=== PATIENT | male | born 1985 | race Caucasian/White ===

== ENCOUNTER → 2021-10-30 11:05 | Outpatient (CLI) | payer OTHER, SELFPAY | PROVIDERS: Family Provider Podiatrist; PCP Podiatrist; Referring Provider Podiatrist; Visit Provider Podiatrist | DX: M54.31 Sciatica, right side (principal) | CPT/HCPCS: 95886; 95909 ==

== ENCOUNTER 2022-05-09 18:01 | Emergency (ER) | payer OTHER, SELFPAY ==
[2022-05-09] VITALS (13 sets, daily range): BP systolic 114–142; BP diastolic 77–95; PULSE 62–78; RESP 12–20; TEMP 36.2; O2SAT 96–100; BMI 24.7
--- NOTE | 2022-05-09 18:30 | DI.RAD.S_ITS ---
PROCEDURE: XR CHEST 1V INDICATIONS: chest pain TECHNIQUE: One view of the chest was acquired. COMPARISON: None. FINDINGS: Surgical changes and devices: None. Lungs and pleura: Lungs are clear. No pleural effusions or pneumothorax. Mediastinum: Mediastinal contours appear normal. Heart size is normal. Bones and chest wall: No suspicious bony lesions. Overlying soft tissues appear unremarkable. IMPRESSION: No acute cardiopulmonary pathology. Dictated by: Simón Gil M.D. on 05/09/2022 at 19:03 Approved by: Simón Gil M.D. on 05/09/2022 at 19:03
[2022-05-09 18:57] LABS: Add Manual Diff / Slide Review NO; Basophils Absolute Auto 100 /uL (0-100); Basophils Percent Auto 1.3 % (0-2); Eosinophils Absolute Auto 100 /uL (0-450); Eosinophils Percent Auto 2.8 % (2-4); Hematocrit 43.2 % (41-53); Hemoglobin 15.3 g/dL (13.5-17.5); Lymphocytes Absolute Auto 1500 /uL (1100-4500); Lymphocytes Percent Auto 29.9 % (25-40); Mean Corpuscular HGB Conc 35.5 % (30-36); Mean Corpuscular Hemoglobin 28.7 PG (26-34); Mean Corpuscular Volume 80.9 fL (80-100); Monocytes Absolute Auto 600 /uL (0-900); Monocytes Percent Auto 12.6 % (3-14); Neutrophils Absolute Auto 2700 /uL (1500-7000); Neutrophils Percent Auto 53.4 % (50-75); Platelet Count 210 X10^3/uL (150-400); Red Blood Cell Count 5.35 X10^6/uL (4.5-5.9); Red Cell Distribution Width 13.8 % (11.6-14.8); White Blood Cell Count 5.1 X10^3/uL (4.5-11.0)
[2022-05-09 19:10] LABS: Alanine Aminotransferase 44 IU/L (<50); Albumin 4.4 g/dL (3.5-5.0); Albumin Globulin Ratio 1.4 (1.0-2.8); Alkaline Phosphatase 92 U/L (38-126); Aspartate Aminotransferase 36 IU/L (17-59); BUN Creatinine Ratio 10.2 (6-22); Bilirubin Total 0.7 mg/dL (0.2-1.3); Blood Urea Nitrogen 12 mg/dL (9-20); Calcium 8.7 mg/dL (8.4-10.2); Carbon Dioxide 28 mmol/L (22-32); Chloride 103 mmol/L (98-107); Creatine Kinase 71 U/L (55-170); Estimated Glomerular Filt Rate > 60 mL/min (>60); Globulin 3.2 g/dL (1.7-4.1); Glucose 118 mg/dL (70-100); HEMOLYSIS < 15 (0-50); Lipase 48 U/L (23-300); Magnesium 2.1 mg/dL (1.6-2.3); Potassium 4.3 mmol/L (3.4-5.1); Sodium 136 mmol/L (137-145); Total Protein 7.6 g/dL (6.3-8.2)
[2022-05-09 19:21] LABS: Troponin I < 0.012 ng/mL (0.01-0.034)
--- NOTE | 2022-05-09 23:52 | ED_ITS ---
[facility] - General Adult General Chief complaint: Hypertension Stated complaint: High BP, several days Time Seen by Provider: 05/09/22 23:52 Source: patient Mode of arrival: Ambulatory History of Present Illness HPI narrative: 36-year-old gentleman presents complaining of a retic blood pressures, epistaxis and significant headache. His symptoms began abruptly on May 03. He noticed he was standing at the sink when he had nose bleed was followed by a sense of dizziness and then he developed a headache. That resolved. He had another ep isode on the initially lightheaded followed by a nose bleed with headache. The headache has persisted. Symptoms continued intermittently on on the he had the worst headache of his life. The headache continued and he went to [facility] for further workup. Workup was unremarkable including CT scan of the head. The CT scan was done approximately 8-12 hours after the onset of the headache. On May 08 he was seen by his primary care doctor and started on 10 mg of lisinopril. On the he noticed nose bleeds and with blood pressure elevated was concerned that he was developing chest pain/pressure and he came in to [facility] for further evaluation. He denies palpitations, abdominal pain, vomiting, nausea, constipation, diarrhea, dysuria. He has not been gaining weight or losing weight recently. He has had no vision changes. Related Data Allergies Allergy/AdvReac Type Severity Reaction Status Date / Time No Known Drug Allergies Allergy Verified 05/09/22 18:24 Review of Systems Review of Systems Narrative: Remainder of complete review of systems is otherwise unremarkable except for that included in the HPI. Patient History Social History Smoking Status: Never smoker Smoking Status: Never smoker alcohol intake frequency: holidays/special occasions only Substance Use Type: does not use Exam Initial Vital Signs Initial Vital Signs: Vital Signs Temperature 97.2 F L 05/09/22 18:24 Pulse Rate 75 05/09/22 18:24 Respiratory Rate 18 05/09/22 18:24 Blood Pressure 137/95 H 05/09/22 18:24 Pulse Oximetry 100 05/09/22 18:24 Oxygen Delivery Method 05/09/22 18:24 General: Healthy appearing, in no acute distress. Able to give a complete and coherent history. Well-nourished well-developed HEENT: Moist mucous membranes, normal sclera with reactive pupils, nasal mucosa is unremarkable with no obvious bleeding source or site Neck: No JVD, supple Respiratory: Lungs are clear to auscultation, no wheezing no rales no rhonchi. Full and symmetrical air movement Cardiac: Regular rate and rhythm no murmurs no bruits Abdomen: Soft, nontender, good bowel tones, no flank pain Skin: Warm and dry, no rashes Neurologic: Grossly neurologically intact with no obvious asymmetries or abnormalities Extremities: No trauma, well perfused Psych: Cooperative, appropriate insight and affect Course Orders Ordered: ED Orders 05/10/22 00:14 Metanephrines, Fr/tot plasma Stat 05/10/22 02:51 CSF culture Stat Cell Count w Diff CSF Stat Glucose CSF Stat HOLD TUBE CSF Stat Meningitis Panel (Film Array) Stat Total Protein CSF Stat Discontinued Medications Diphenhydramine HCl (Diphenhydramine 50 Mg/Ml Vial) 25 mg IV NOW ONE Stop: 05/10/22 00:11 Last Admin: 05/10/22 00:24 Dose: 25 mg Documented By: NICK Sodium Chloride (Normal Saline 0.9%) 1,000 mls @ 1,000 mls/hr IV BOLUS ONE Stop: 05/10/22 01:09 Last Infusion: 05/10/22 02:42 Dose: 0 mls/hr Documented By: Admin: 05/10/22 00:23 Dose: 1,000 mls/hr Documented By: NICK Metoclopramide HCl (Metoclopramide 10 Mg/2 Ml Inj) 10 mg IV NOW ONE Stop: 05/10/22 00:11 Last Admin: 05/10/22 00:24 Dose: 10 mg Documented By: NICK Vital Signs Vital signs: Vital Signs - 8 hr 05/09/22 20:19 05/09/22 20:19 05/09/22 20:30 Pulse Rate 68 Respiratory Rate 14 Blood Pressure 132/89 124/85 Pulse Oximetry 100 Oxygen Delivery Method 05/09/22 20:30 05/09/22 21:00 05/09/22 21:00 Pulse Rate 70 77 Respiratory Rate 17 20 Blood Pressure 132/77 Pulse Oximetry 99 98 Oxygen Delivery Method Room Air Room Air 05/09/22 21:30 05/09/22 21:30 05/09/22 21:36 Pulse Rate 68 70 Respiratory Rate 15 16 Blood Pressure 129/79 Pulse Oximetry 97 99 Oxygen Delivery Method 05/09/22 21:36 05/09/22 22:00 05/09/22 22:00 Pulse Rate 65 Respiratory Rate 15 Blood Pressure 142/85 H 119/79 Pulse Oximetry 96 Oxygen Delivery Method 05/09/22 22:30 05/09/22 22:30 05/09/22 23:00 Pulse Rate 69 Respiratory Rate 12 Blood Pressure 124/81 114/78 Pulse Oximetry 97 Oxygen Delivery Method 05/09/22 23:00 05/09/22 23:30 05/09/22 23:30 Pulse Rate 63 62 Respiratory Rate 14 15 Blood Pressure 130/81 Pulse Oximetry 96 97 Oxygen Delivery Method 05/10/22 00:00 05/10/22 00:00 05/10/22 00:01 Pulse Rate 65 68 Respiratory Rate 16 15 Blood Pressure 167/102 H Pulse Oximetry 99 99 Oxygen Delivery Method 05/10/22 00:01 Pulse Rate Respiratory Rate Blood Pressure 166/106 H Pulse Oximetry Oxygen Delivery Method Medical Decision Making Lab Data Result diagrams: 05/09/22 18:40 05/09/22 18:40 Labs: Lab Results 05/09/22 05/09/22 05/10/22 Range/Units 18:40 18:40 02:25 WBC 5.1 (4.5-11.0) X10^3/uL RBC 5.35 (4.5-5.9) X10^6/uL Hgb 15.3 (13.5-17.5) g/dL Hct 43.2 (41-53) % MCV 80.9 (80-100) fL MCH 28.7 (26-34) PG MCHC 35.5 (30-36) % RDW 13.8 (11.6-14.8) % Plt Count 210 (150-400) X10^3/uL Neut % (Auto) 53.4 (50-75) % Lymph % (Auto) 29.9 (25-40) % [place] % (Auto) 12.6 (3-14) % Eos % (Auto) 2.8 (2-4) % Baso % (Auto) 1.3 (0-2) % Neut # (Auto) 2700 (2837-4654) /uL Lymph # (Auto) 1500 (5332-4587) /uL [place] # (Auto) 600 (0-900) /uL Eos # (Auto) 100 (0-450) /uL Baso # (Auto) 100 (0-100) /uL Sodium 136 L (137-145) mmol/L Potassium 4.3 (3.4-5.1) mmol/L Chloride 103 (98-107) mmol/L Carbon Dioxide 28 (22-32) mmol/L BUN 12 (9-20) mg/dL Creatinine 1.18 (0.66-1.25) mg/dL Estimated GFR > 60 (>60) mL/min BUN/Creatinine Ratio 10.2 (6-22) Glucose 118 H (70-100) mg/dL Calcium 8.7 (8.4-10.2) mg/dL Magnesium 2.1 (1.6-2.3) mg/dL Total Bilirubin 0.7 (0.2-1.3) mg/dL AST 36 (17-59) IU/L ALT 44 (<50) IU/L Alkaline Phosphatase 92 (38-126) U/L Total Creatine Kinase 71 (55-170) U/L CK-MB (CK-2) TNP CK-MB (CK-2) Rel Index TNP Troponin I < 0.012 (0.01-0.034) ng/mL Total Protein 7.6 (6.3-8.2) g/dL Albumin 4.4 (3.5-5.0) g/dL Globulin 3.2 (1.7-4.1) g/dL Albumin/Globulin Ratio 1.4 (1.0-2.8) Lipase 48 (23-300) U/L CSF Tube Number 2 CSF Volume 1.0 ml CSF Appearance Clear (Clear) CSF Color Colorless (Colorless) CSF WBC 1 (0-5) MONO/uL CSF RBC 572 RBC /uL CSF Mononuclear WBCs Not Reportable CSF Polynuclear WBCs Not Reportable CSF Glucose 54 (40-70) mg/dL CSF Total Protein 61 H (12-60) mg/dL Imaging Data Chest x-ray: Radiologist's Impression: FINDINGS:? ? Surgical changes and devices:? None.? ? Lungs and pleura:? Lungs are clear.? No pleural effusions or pneumothorax.? ? Mediastinum:? Mediastinal contours appear normal.? Heart size is normal.? ? Bones and chest wall:? No suspicious bony lesions.? Overlying soft tissues appear unremarkable.? ? IMPRESSION:? No acute cardiopulmonary pathology. ? ? Dictated by: Simón Gil M.D. on 05/09/2022 at 19:03 ? ? ECG Data Interpretation: Sinus rhythm at a rate of 79 Normal interval normal axis No acute ischemic changes MDM Narrative Medical decision making narrative: 36-year-old gentleman with 6 days of recurrent headaches, a retic blood pressu res and epistaxis. Workup has been entirely benign today 8. Possibility of subarachnoid hemorrhage that was missed by late CT scan was entertained and lumbar puncture does not show xanthochromia to suggest that this might be part of his issue. He did respond well to fluids Reglan and and Benadryl in terms of helping his headache. Lab work was unremarkable. While in the emergency department he was noticed to have rapidly and dramatically changing blood pressure from 138/76 to 196/110 and back down again with no change in behaviors anxiety mood or obvious pain. At this point I do not have a life-threatening explanation for the epistaxis min no evidence of blood dyscrasias or vascular abnormalities. In terms of truly odd diagnoses, possibility of pheochromocytoma cysts with the dramatic blood pressure lability was entertained. Again the 1 week acute onset significantly argues against that. Of note he has not recently had COVID as an explanation for some of his odd symptoms. At this time he is pain-free from his headache blood pressure is well controlled he will be discharged home and will ask him to continue his lisinopril and follow-up with his primary care physician. Discharge Plan Departure Patient Disposition: Home Clinical Impression: Hypertension, Headache, Epistaxis Instructions: DI for High Blood Pressure, DI for Headache Activity Restrictions/Additional Instructions: Thank you for coming in today Your blood pressure was quite labile, it would go from normal to significantly elevated and back down again with no intervention. Your workup today was quite reassuring. I did review all of your workup done at [facility] including the normal CT scan of your head. There is no evidence of overall infection, heart attack or heart attack like syndrome. There were no masses or tumors appreciated in your brain. With the persistent headache the possibility of an aneurysm that was leaking was entertained. We did a lumbar puncture today that show that that does not seem to be the case. With the recurrent nose bleeds it is not entirely clear that t hese are related to blood pressure but that may be. There is no evidence of blood cancers or platelet disorders that might be causing these nosebleeds. At this time, all of the horrible life-threatening possibilities that might be causing her symptoms have essentially been ruled out. I would continue taking the newly started lisinopril for your blood pressure. You can use the hydrocodone that you have at home for the occasional headache. You may find that it is more effective if you can mix it with 400 mg of ibuprofen. Please follow-up with your primary care doctor If you find that you are getting worse or develop any new symptoms, please feel free to return to the emergency department for further evaluation. Referrals: Reba Olson MD [Primary Care Provider] -
[2022-05-10] VITALS (13 sets, daily range): BP systolic 107–167; BP diastolic 65–106; PULSE 61–81; RESP 13–19; O2SAT 97–100
[2022-05-10] MEDS: SODIUM CHLORIDE 0.9% 1,000 ML 1000 ML IV (00:23)
[2022-05-10] MEDS: METOCLOPRAMIDE 10 MG/2 ML INJ IV (00:24)
[2022-05-10] MEDS: diphenhydrAMINE 50 MG/ML VIAL 25 MG IV (00:24)
[2022-05-10 02:57] LABS: Glucose CSF 54 mg/dL (40-70); Total Protein CSF 61 mg/dL (12-60)
[2022-05-10 03:21] LABS: Appearance CSF Clear (Clear); CSF Tube Number 2; CSF Tube Volume 1.0 mL; Color CSF Colorless (Colorless); Red Blood Cell CSF 572 RBC /uL; White Blood Cell CSF 1 MONO/uL (0-5)
[2022-05-10 03:22] LABS: HOLD TUBE CSF OK
[2022-05-10 04:26] LABS: Cryptococcus neoformans/gattii Not Detected (Not Detect); Enterovirus Not Detected (Not Detect); Escherichia coli K1 Not Detected (Not Detect); Haemophilus influenzae Not Detected (Not Detect); Herpes simplex virus 1 Not Detected (Not Detect); Herpes simplex virus 2 Not Detected (Not Detect); Human herpesvirus 6 Not Detected (Not Detect); Human parechovirus Not Detected (Not Detect); Listeria monocytogenes Not Detected (Not Detect); Neisseria meningitidis Not Detected (Not Detect); Streptococcus agalactiae Not Detected (Not Detect); Streptococcus pneumoniae Not Detected (Not Detect); Varicella Zoster Virus Not Detected (Not Detecte)
== END 2022-05-10 04:29 | disposition home or self-care (01) ==
PROVIDERS: Emergency Provider Emergency Medicine; Family Provider Podiatrist; PCP Surgery
DX: I10 Essential (primary) hypertension (principal); R51.9 Headache, unspecified; R42 Dizziness and giddiness; R04.0 Epistaxis
CPT/HCPCS: 36415; 71045; 80053; 82550; 82945; 83690; 83735; 84157; 84484; 85025; 87070; 87205; 87798; 89051; 93005; 93010; 96361; 96374; 96375; 99284; J1200; J2765

== ENCOUNTER → 2022-05-21 15:29 | Outpatient (CLI) | payer OTHER, SELFPAY ==
--- NOTE | 2022-05-21 15:31 | DI.MRI.S_ITS ---
PROCEDURE: MR CERVICAL SPINE WO/W CON INDICATIONS: Headache, unspecified TECHNIQUE: Noncontrast sagittal T1 spin echo and T2 fast spin echo, sagittal STIR, foraminal oblique sagittal T2 fast spin echo, axial gradient echo or T2 fast spin echo through the cervical spine. After the administration of contrast, axial and sagittal T1 spin echo with fat saturation through the cervical spine. COMPARISON: [facility], MR, MR HEAD/BRAIN WO/W CON, 05/21/2022, 16:15. FINDINGS: Image quality: This examination is limited by involuntary motion artifact. Alignment and curvature: There is normal bony alignment. Marrow: Marrow is normal in overall signal, without suspicious enhancement. Spinal cord: Visualized spinal cord has normal size and signal. No cerebellar tonsillar herniation. No abnormal intramedullary enhancement. Paraspinous soft tissues: No paravertebral masses or suspicious enhancement. C2-3: Normal appearance. C3-4: Normal appearance. C4-5: Normal appearance. C5-6: Normal appearance. C6-7: Normal appearance. C7-T1: Normal appearance. IMPRESSION: Motion limited study demonstrating no significant abnormality. No abnormal enhancement is seen. Dictated by: Epi Gleason M.D. on 05/21/2022 at 17:02 Approved by: Epi Gleason M.D. on 05/21/2022 at 17:03
--- NOTE | 2022-05-21 15:31 | DI.MRI.S_ITS ---
PROCEDURE: MR HEAD/BRAIN WO/W CON INDICATIONS: Headache, unspecified TECHNIQUE: Noncontrast axial T1 spin echo, axial T2 fast spin echo, sagittal and axial FLAIR, coronal T2 fast spin echo, axial gradient echo, axial diffusion and ADC through the brain. After the administration of contrast, axial and coronal and sagittal 3D VIBE or T1 spin echo with fat saturation through the brain. COMPARISON: [facility], MR, MR CERVICAL SPINE WO/W CON, 05/21/2022, 16:15. FINDINGS: Image quality: Excellent. CSF Spaces: Basal cisterns are patent. No extra-axial fluid collections. Ventricles are normal in size and shape. Brain: No midline shift. No intracranial bleeds or masses. No abnormal intracranial enhancement. The brainstem appears normal. Diffusion-weighted images demonstrate no acute ischemic insults. No chronic ischemic insults. Normal intravascular flow voids are present. Skull and face: Calvarial marrow is normal in signal. Orbits appear normal. Sinuses: There is moderate mucosal thickening seen involving the right maxillary sinus. Mild mucosal thickening is seen elsewhere within the paranasal sinuses. No abnormal fluid is seen within the mastoid air cells. IMPRESSION: Unremarkable intracranial study, without an imaging explanation found for the patient's presenting history of headache. No masses or abnormal enhancement can be seen. Paranasal sinus disease is seen, which is most prominent within the right maxillary sinus. Dictated by: Epi Gleason M.D. on 05/21/2022 at 17:01 Approved by: Epi Gleason M.D. on 05/21/2022 at 17:02
== END ==
PROVIDERS: Family Provider Podiatrist; PCP Surgery; Referring Provider Family Medicine; Visit Provider Family Medicine
DX: R51.9 Headache, unspecified (principal); J32.8 Other chronic sinusitis
CPT/HCPCS: 70553; 72156; A9579

== ENCOUNTER → 2022-08-12 08:45 | Outpatient (CLI) | payer OTHER, SELFPAY ==
--- NOTE | 2022-08-12 | DI.MRI.S_ITS ---
PROCEDURE: MR ANGIO HEAD WO CON INDICATIONS: Headache, unspecified TECHNIQUE: Noncontrast axial 3-D [id number] MR angiogram, with 3-dimensional maximum intensity projection (MIP) reformats of the internal carotid arteries and posterior circulation then performed. COMPARISON: None. FINDINGS: Image quality: Excellent. Anterior circulation: Intracranial internal carotid arteries demonstrate normal size and intraluminal flow signal. The flow within the paired anterior cerebral arteries is normal and symmetric. The flow within the middle cerebral arteries is normal and symmetric. The anterior communicating artery is seen. No stenoses, occlusions, or aneurysms. Posterior circulation: Visualized portions of the vertebral arteries demonstrate normal caliber, and join to form a normal appearing basilar artery. 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 The P2 segment is supplied by a widely patent posterior communicating artery. Remainder of the distal vasculature unremarkable. No stenoses, occlusions, or aneurysms. IMPRESSION: Normal MR angiogram of the brain Approved by: Mikal Harris M.D. on 08/12/2022 at 9:34
== END ==
PROVIDERS: Family Provider Podiatrist
DX: R51.9 Headache, unspecified (principal)
CPT/HCPCS: 70544

== ENCOUNTER 2023-12-29 11:04 | Emergency (ER) | payer OTHER, SELFPAY ==
[2023-12-29 11:22] VITALS: BP 148/83; PULSE 90; RESP 16; TEMP 36.6; O2SAT 98; BMI 25.0
[2023-12-29 12:13] LABS: Urine Volume 10mL (spun)
[2023-12-29 12:17] LABS: Bacteria Urine None Seen; Culture Indicated Urine Cult Not Indicated; RBC Urine None Seen (0-5/HPF); Squamous Epithelial Cell Urine None Seen (0-5/HPF); WBC Urine None Seen (0-5/HPF)
[2023-12-29 13:35] VITALS: BP 133/85; PULSE 73; RESP 16; O2SAT 99
[2023-12-29 14:00] VITALS: BP 126/84; PULSE 76; RESP 16; O2SAT 98
--- NOTE | 2023-12-29 14:09 | ED.ABDPAIN ---
HPI - Abdominal Pain General Chief Complaint: Abdominal Pain Stated Complaint: L testicle/gut pain, difficulty walking Time Seen by Provider: 12/29/23 13:54 Source: patient Mode of arrival: Wheelchair History of Present Illness HPI narrative: Is a 38-year-old male who presents with left-sided abdominal pain and testicular pain. He was actually seen evaluated twice a day [facility] for this in the last 1. Initially he was seen in December 24. At that time he had had pain in the left testicle for about 3 days there was concern for lack of cremasteric reflex. Patient continues to have pain no he has had workup. He had a negative ultrasound but it did show epididymitis he was started on Bactrim and anti-inflammatories. He was then seen again at [facility] yesterday for ongoing left testicular pain but it actually is in left lower quadrant pain radiating down into his left testicle. Some point he mentions that he did lift 40 lb bag of belongings prior to in the pain started. There was concern that he may have a hernia that has just not seen. He had a repeat ultrasound and CT without contrast done yesterday. Concern that he likely has that is just not yet visualized on imaging. He was seen again by his primary who recommended he come for a 3rd time to the ER. He did not have blood work. He is mildly nauseous but no real vomiting no change in bowel habits. It is definitely worse whenever he moves certain positions while lying down irritate it. He has not noticed a big bulge it definitely hurts more when he strains or tries to package pick up his children. Related Data Previous Rx's Medication Instructions Recorded hydrocodone 5 mg-acetaminophen 325 1 tab PO Q6H PRN pain #10 tabs 12/29/23 mg tablet Allergies Allergy/AdvReac Type Severity Reaction Status Date / Time No Known Drug Allergies Allergy Verified 05/09/22 18:24 Patient History Social History Smoking Status: Never smoker Smoking Status: Never smoker alcohol intake frequency: holidays/special occasions only Substance Use Type: does not use Exam Initial Vital Signs Initial Vital Signs: Vital Signs Temperature 97.9 F 12/29/23 11:22 Pulse Rate 90 12/29/23 11:22 Respiratory Rate 16 12/29/23 11:22 Blood Pressure 148/83 H 12/29/23 11:22 Pulse Oximetry 98 12/29/23 11:22 Oxygen Delivery Method Room Air 12/29/23 11:22 GENERAL: Alert 38-year-old male appears mildly uncomfortable and in no acute distress. HEENT: Head atraumatic,EOMI, pupils reactive, face symmetric, moist mucous membranes CARDIOVASCULAR: Regular rate and rhythm without murmurs, rubs or gallops. RESPIRATORY: Breath sounds equal bilaterally, no wheezes rales or rhonchi. ABDOMEN: Soft, mild left-sided pain no guarding or rebound : Nurse Belén present for exam no obvious hernia on the right side however left there might be some minimal swelling present in the left inguinal area. No obvious testicular erythema in the left right side is within normal limits EXTREMITIES: Normal range of motion, no clubbing or edema. Neurovascularly intact NEUROLOGICAL: Alert and oriented x4.Normal gait and speech. SKIN: Warm, dry, no laceration, no petechiae, no rashes or lesions. Course Orders Ordered: ED Orders 12/29/23 11:30 Ictotest Urine Stat Urine Microscopic Stat 12/29/23 14:22 US abdomen limited Stat Discontinued Medications Ketorolac Tromethamine (Ketorolac 30 Mg/Ml Vial) 30 mg IM NOW ONE Stop: 12/29/23 14:23 Last Admin: 12/29/23 14:26 Dose: 30 mg Documented By: JOHNNY Vital Signs Vital signs: Vital Signs - 8 hr 12/29/23 11:22 12/29/23 13:35 12/29/23 14:00 Temperature 97.9 F Pulse Rate 90 73 76 Respiratory Rate 16 16 16 Blood Pressure 148/83 H 133/85 126/84 Pulse Oximetry 98 99 98 Oxygen Delivery Method Room Air Room Air Room Air 12/29/23 15:38 12/29/23 16:24 Temperature Pulse Rate 69 70 Respiratory Rate 16 18 Blood Pressure 122/89 124/80 Pulse Oximetry 99 98 Oxygen Delivery Method Room Air Room Air MDM - Abdominal Pain Lab Data Labs: Lab Results 12/29/23 Range/Units 11:30 Ur Bilirubin Confirm TNP Urine RBC None seen (0-5/HPF) Urine WBC None seen (0-5/HPF) Ur Squamous Epith Cells None seen (0-5/HPF) Urine Bacteria None seen (None) Ur Culture Indicated? Cult not indicated Vol Urine Centrifuged 10ml (spun) Point of care testing: Urine Dip Bedside Urine Glucose Negative Bedside Urine Bilirubin + 1 Bedside Urine Ketone - Negative Urine Specific [place] 1.030 Bedside Urine Occult Blood - Negative Bedside Urine pH 5.5 Bedside Urine Protein +/- 15 Bedside Urine Urobilinogen - Negative Bedside Urine Nitrite - Negative Bedside Urine Leukocytes - Negative Esterase Imaging Data US - abdomen: Radiologist's Impression: PROCEDURE: US ABDOMEN LIMITED INDICATIONS: left inguinal area for hernia TECHNIQUE: Real-time focused scanning was performed of the inguinal region, with image documentation. COMPARISON: None. FINDINGS: No evidence of left inguinal hernia. IMPRESSION: Negative examination. Dictated by: Cameron Norman M.D. on 12/29/2023 at 15:26 MDM Narrative Medical decision making narrative: Patient 38-year-old male presents to the ED for his 3rd visit this week to previous visits where it would be general. Records have been received and reviewed. It does not appear that blood work has been done. However he has had 2 ultrasounds and a noncontrasted abdominal CT. He has pain concerning for hernia. Today on exam and history I also agree that he likely has an early hernia. Ultrasound today again has been reviewed and is negative. At this time recommend outpatient follow-up and pain control. Naproxen does not seem to be helping we will give him a couple Reagan, he is quite tender on exam. Discharge Plan Departure Patient Disposition: Home Clinical Impression: Inguinal hernia of left side without obstruction or gangrene Instructions: Groin Hernia -- Adult Activity Restrictions/Additional Instructions: *You have been diagnosed with I suspect that you do have an inguinal hernia. *What to do: I suspect that either of an inguinal hernia or you have pulled your groin. At this time I recommend no heavy lifting. Pain control. You may require outpatient follow-up with surgery and definitely with your PCP *Continue to take medications as directed Continue naproxen as previously scheduled Reagan 1 tab every 6 hours if needed for severe pain Finish antibiotic as previously prescribed *Follow up with your primary care provider in 2-3 days or call [phone] *Return to ER if you should have increasing pain nausea vomiting change in bowel habits [or] any new, worsening or concerning symptoms CONTROLLED SUBSTANCE DISCHARGE (Narcotoic/benzodiazepine/Flexeril/Phenergan) 1. You have been prescribed narcotic medications, it does have acetaminophen/Tylenol/paracetamol in it, DO NOT TAKE MORE THAN 4,00mg in 24 hours of Tylenol. TRAMADOL DOES NOT CONTAIN TYLENOL 2. Please understand that we cannot provide further refills of narcotics, benzodiazepines or controlled substances through the ED and her pain management will need to be through your provider. 3. While on these medications you cannot drive or operate heavy machinery. 4. You cannot sign legal documents or perform any duties such as this. 5. As long as you're taking opiate pain medications he should also be taking a stool softener such as Colace, Dulcolax, MiraLAX or prune juice, to help avoid constipation. Prescriptions: New hydrocodone-acetaminophen 5-325 mg tablet 1 tab PO Q6H PRN (Reason: pain) Qty: 10 0RF Referrals: Iron Costa [Primary Care Provider] - Stand Alone Forms: Patient Portal/API, Work Release Note
--- NOTE | 2023-12-29 14:22 | DI.US.S_ITS ---
PROCEDURE: US ABDOMEN LIMITED INDICATIONS: left inguinal area for hernia TECHNIQUE: Real-time focused scanning was performed of the inguinal region, with image documentation. COMPARISON: None. FINDINGS: No evidence of left inguinal hernia. IMPRESSION: Negative examination. Dictated by: Cameron Norman M.D. on 12/29/2023 at 15:26 Approved by: Cameron Norman M.D. on 12/29/2023 at 15:26
[2023-12-29] MEDS: KETOROLAC 30 MG/ML VIAL IM (14:26)
[2023-12-29 15:38] VITALS: BP 122/89; PULSE 69; RESP 16; O2SAT 99
[2023-12-29 16:24] VITALS: BP 124/80; PULSE 70; RESP 18; O2SAT 98
== END 2023-12-29 16:26 | disposition home or self-care (01) ==
PROVIDERS: Emergency Provider Emergency Medicine; Family Provider Podiatrist
DX: K40.90 Unilateral inguinal hernia, without obstruction or gangrene, not specified as recurrent (principal)
CPT/HCPCS: 76705; 81003; 81015; 96372; 99283; J1885

== ENCOUNTER 2023-12-31 15:12 | Emergency (ER) | payer OTHER, SELFPAY ==
[2023-12-31 15:33] VITALS: BP 166/91; PULSE 82; RESP 18; TEMP 36.6; O2SAT 98; BMI 25.0
[2023-12-31 17:22] VITALS: RESP 20; O2SAT 98
--- NOTE | 2023-12-31 18:22 | ED.ABDPAIN ---
HPI - Abdominal Pain General Chief Complaint: Urogenital-Male Stated Complaint: post inguinal hernia/symptoms still present Time Seen by Provider: 12/31/23 17:23 Source: patient Mode of arrival: Ambulatory Limitations: no limitations History of Present Illness HPI narrative: 38-year-old male with history of migraines, hypertension, on Botox and an antihypertensive with left-sided lower abdominal and testicular pain since the 24 of December. Patient states pain has been persistent has never resolved does not wax or wane in intensity. It is little bit worse with pressure on the area, bending or walking. Patient states no fevers or chills. Some mild nausea. No vomiting. He states he has had normal bowel movements. No difficulty with urination, no dysuria urgency or frequency. No discharge. Patient has been on Bactrim since last Wednesday. He has had 2 scrotal ultrasound which he states he was told to her fine, a CT without contrast which was also reportedly negative and an abdominal ultrasound which has been negative. Patient did not have blood work. He states they did check his urine. He saw medical within [facility] who told him to see a urologist and was sent here. Patient states he is comfortable returning home without additional workup at this time. Discussed can give referral to Urology locally he thinks he can see Urology through the [facility] on Wednesday. He has been taking Tylenol 3 for pain which is helpful. As well as naproxen. No known drug allergies. Chews tobacco, occasional alcohol, no recreational drugs. Accompanied by his . Related Data Previous Rx's Medication Instructions Recorded hydrocodone 5 mg-acetaminophen 325 1 tab PO Q6H PRN pain #10 tabs 12/29/23 mg tablet Allergies Allergy/AdvReac Type Severity Reaction Status Date / Time No Known Drug Allergies Allergy Verified 05/09/22 18:24 Review of Systems Review of Systems ROS Unobtainable: All systems reviewed & are unremarkable except as noted in HPI and below Patient History Social History Smoking Status: Never smoker Smoking Status: Never smoker alcohol intake frequency: holidays/special occasions only Substance Use Type: does not use Exam Narrative Exam Narrative: GENERAL: Alert and oriented x three, mild distress HEENT: Head normocephalic, atraumatic, EOMI, pupils reactive, face symmetric, moist mucous membranes NECK: Supple, full range of motion CARDIOVASCULAR: Regular rate and rhythm without murmurs, rubs or gallops. RESPIRATORY: Breath sounds equal bilaterally, no wheezes rales or rhonchi. ABDOMEN: Soft, mild left inguinal tenderness. No other abdominal. Normoactive bowel sounds all 4 quadrants. No guarding or rebound, rigidity, no mass, no hernia noted. : No CVA tenderness, Male: normal external examination, no penile discharge or lesions, testicle is slightly tender. Cremasteric reflex intact, no inguinal hernias noted. EXTREMITIES: Normal range of motion, no clubbing or edema. Neurovascularly intact NEUROLOGICAL: Cranial nerves II through XII grossly intact. Moving all extremities SKIN: Warm, dry, no petechiae, no rashes or lesions. Initial Vital Signs Initial Vital Signs: Vital Signs Temperature 97.9 F 12/31/23 15:33 Pulse Rate 82 12/31/23 15:33 Respiratory Rate 18 12/31/23 15:33 Blood Pressure 166/91 H 12/31/23 15:33 Pulse Oximetry 98 12/31/23 15:33 Oxygen Delivery Method Room Air 12/31/23 15:33 Course Orders Ordered: ED Orders 12/31/23 18:44 Chlamydia Gonorrhea PCR -URINE Stat UA Complete [Urinalysis and Microscopic] Stat Vital Signs Vital signs: Vital Signs - 8 hr 12/31/23 15:33 12/31/23 17:22 Temperature 97.9 F Pulse Rate 82 Respiratory Rate 18 20 Blood Pressure 166/91 H Pulse Oximetry 98 98 Oxygen Delivery Method Room Air Room Air MDM - Abdominal Pain Lab Data Labs: Lab Results 12/31/23 Range/Units 18:44 Urine Color Yellow Urine Appearance Clear Urine pH 6.5 (4.5-8.0) Ur Specific [place] 1.025 (1.000-1.035) Urine Protein Negative (Negative) Urine Glucose (UA) Negative (Negative) g/dL Urine Ketones Negative (NEGATIVE) Urine Occult Blood Negative (Negative) Urine Nitrate Negative (Negative) Urine Bilirubin Negative (NEGATIVE) Urine Urobilinogen 0.2 (0.2) E.U./dL Ur Leukocyte Esterase Negative (NEGATIVE) Urine RBC None seen (0-5/HPF) Urine WBC 0-1/hpf (0-5/HPF) Ur Squamous Epith Cells None seen (0-5/HPF) Amorphous Sediment 1+ Urine Bacteria Occasional (0-1) (None) Urine Yeast 0-1/hpf (None) Ur Culture Indicated? Cult not indicated Vol Urine Centrifuged 10ml (spun) Ur Chlamydia DNA (PCR) Not detected N gonorrhoeae DNA (PCR) Not detected MDM Narrative Medical decision making narrative: 38-year-old male after examination he does have some inguinal tenderness down to the scrotum has been weak has had negative CT, 2- scrotal ultrasound and abdominal ultrasound. States he was sent by medical and defers additional workup at this time. We did discuss obtaining labs, CT abdomen pelvis with contrast and UA. Patient defers and prefers to return home to see Urology on Wednesday. Discussed with patient can send his urine we will contact him if any positive. UA is negative, urine gonorrhea/chlamydia is negative. Discharge Plan Departure Patient Disposition: Home Clinical Impression: Left testicular pain Activity Restrictions/Additional Instructions: Follow-up with Urology, if they do not find any changes General surgery would be the next appropriate step. I hope you feel improved. Please continue pain medication as prescribed. If you are having new or worsening pain please return for re-evaluation, periodic fevers, vomiting, difficulty or painful urination, new redness, swelling or skin changes to the testicle or lower abdomen, if you see any bulges or lumps or other new or concerning changes. Prescriptions: No Action hydrocodone-acetaminophen 5-325 mg tablet 1 tab PO Q6H PRN (Reason: pain) Qty: 10 0RF Referrals: Iron Costa [Primary Care Provider] - Compa Benz MD [Physician] - Stand Alone Forms: Patient Portal/API
[2023-12-31 19:08] LABS: Appearance Urine UA CLEAR; Bilirubin Urine UA NEGATIVE (NEGATIVE); Color Urine UA YELLOW; Glucose Urine UA NEGATIVE (Negative); Ketones Urine UA NEGATIVE (NEGATIVE); Leukocyte Esterase Urine UA NEGATIVE (NEGATIVE); Nitrite Urine UA NEGATIVE (Negative); Occult Blood Urine UA NEGATIVE (Negative); Protein Urine UA NEGATIVE (Negative); Specific Gravity Urine UA 1.025 (1.000-1.035); Urobilinogen Urine UA 0.2 E.U./dL (0.2); pH Urine UA 6.5 (4.5-8.0)
--- NOTE | 2023-12-31 19:10 | PC.NURSE ---
pt declined his discharged vital signs and his blood work. Dr. Jeff stevenson.
[2023-12-31 19:20] LABS: Bacteria Urine Occasional (0-1); RBC Urine None Seen (0-5/HPF); Urine Volume 10mL (spun); WBC Urine 0-1/HPF (0-5/HPF)
[2023-12-31 19:21] LABS: Amorphous Sediment Urine 1+; Culture Indicated Urine Cult Not Indicated; Squamous Epithelial Cell Urine None Seen (0-5/HPF)
[2023-12-31 20:57] LABS: Urine N gonorrhoeae NOT DETECTED
[2023-12-31 21:08] LABS: Urine Chlamydia NOT DETECTED
== END 2023-12-31 18:58 | disposition home or self-care (01) ==
PROVIDERS: Emergency Provider Emergency Medicine; Family Provider Podiatrist
DX: N50.812 Left testicular pain (principal)
CPT/HCPCS: 81001; 87491; 87591; 99282

== ENCOUNTER → 2024-01-18 | Outpatient (CLI) | payer OTHER, SELFPAY ==
--- NOTE | 2024-01-18 | DI.MRI.S_ITS ---
PROCEDURE: MR LUMBAR SPINE WO/W CON INDICATIONS: Low back pain Scrotal pain TECHNIQUE: Noncontrast sagittal T1 spin echo and T2 fast spin echo, sagittal STIR, axial T1 and T2 fast spin echo through the lumbar spine. In cases with scoliosis, additional coronal T2 fast spin echo may be performed. After the administration of contrast, sagittal and axial T1 spin echo with fat saturation through the lumbar spine. COMPARISON: None. FINDINGS: Image quality: Excellent. Alignment and curvature: There is normal bony alignment. Marrow: Marrow is of normal overall signal. No acute vertebral body compression fractures. No suspicious marrow enhancement. Spinal cord: Conus medullaris terminates at the L1 level. Visualized spinal cord demonstrates normal signal, without suspicious enhancement. Paraspinous soft tissues: No paravertebral masses or abnormal enhancement. T12-L1: Normal appearance. L1-L2: Normal appearance. L2-L3: Normal appearance. L3-L4: Normal appearance. L4-L5: Normal appearance. L5-S1: Normal appearance. IMPRESSION: No significant degenerative changes. No central canal or neural foraminal stenosis. Dictated by: Neeraj Martinez M.D. on 01/19/2024 at 9:05 Approved by: Neeraj Martinez M.D. on 01/19/2024 at 9:07
== END ==
PROVIDERS: Family Provider Podiatrist; Referring Provider Physician Assistant Medical; Visit Provider Physician Assistant Medical
DX: N50.82 Scrotal pain (principal); M54.50 Low back pain, unspecified; R10.32 Left lower quadrant pain; G89.29 Other chronic pain
CPT/HCPCS: 72158; A9579

== ENCOUNTER 2024-06-05 10:58 | Emergency (ER) | payer OTHER, SELFPAY ==
[2024-06-05 11:38] VITALS: BP 140/87; PULSE 77; RESP 18; TEMP 36.4; O2SAT 99; BMI 24.4
[2024-06-05 12:00] LABS: Add Manual Diff / Slide Review NO; Basophils Absolute Auto 100 /uL (0-100); Basophils Percent Auto 0.9 % (0-2); Eosinophils Absolute Auto 100 /uL (0-450); Eosinophils Percent Auto 1.6 % (2-4); Hematocrit 44.7 % (41-53); Hemoglobin 15.6 g/dL (13.5-17.5); Lymphocytes Absolute Auto 1600 /uL (1100-4500); Lymphocytes Percent Auto 18.7 % (25-40); Mean Corpuscular Hemoglobin 29.1 PG (26-34); Mean Corpuscular Volume 83.3 fL (80-100); Monocytes Absolute Auto 700 /uL (0-900); Monocytes Percent Auto 7.7 % (3-14); Neutrophils Absolute Auto 6100 /uL (1500-7000); Neutrophils Percent Auto 71.1 % (50-75); Platelet Count 230 X10^3/uL (150-400); Red Blood Cell Count 5.36 X10^6/uL (4.5-5.9); Red Cell Distribution Width 14.1 % (11.6-14.8); White Blood Cell Count 8.5 X10^3/uL (4.5-11.0)
--- NOTE | 2024-06-05 12:06 | ED_ITS ---
HPI - General Adult General Chief complaint: Abdominal Pain Stated complaint: abdominal pain left sided Time Seen by Provider: 06/05/24 12:03 Source: patient Mode of arrival: Ambulatory History of Present Illness HPI narrative: 38-year-old gentleman with a history of hypertension and migraines presents with left-sided abdominal pain. This has been an ongoing issue for him for a number of months and he has had moderately extensive workup today. He has records with him from his clinic [place] which indicates they have found splenomegaly he has had a CT scan of the chest with and without contrast that was essentially unremarkable. He has consultations coming up with both Hematology and Gastroenterology. He was having increasing pain this morning and sent in for further evaluation. He describes no fevers, cough, chills no weight loss. Most recent CT scan of the abdomen was April 24 it was abdominopelvic CTA that showed patent portal venous system, mild splenomegaly and otherwise unremarkable study. Related Data Previous Rx's Medication Instructions Recorded hydrocodone 5 mg-acetaminophen 325 1 tab PO Q6H PRN pain #10 tabs 12/29/23 mg tablet Allergies Allergy/AdvReac Type Severity Reaction Status Date / Time No Known Drug Allergies Allergy Verified 05/09/22 18:24 Review of Systems Review of Systems Narrative: Pertinent positive and negative findings as per HPI Patient History Social History Smoking Status: Never smoker Smoking Status: Never smoker alcohol intake frequency: holidays/special occasions only Substance Use Type: does not use Exam Initial Vital Signs Initial Vital Signs: Vital Signs Temperature 97.6 F 06/05/24 11:38 Pulse Rate 77 06/05/24 11:38 Respiratory Rate 18 06/05/24 11:38 Blood Pressure 140/87 06/05/24 11:38 Pulse Oximetry 99 06/05/24 11:38 Oxygen Delivery Method Room Air 06/05/24 11:38 General: Healthy appearing, left-sided abdominal pain but Able to give a complete and coherent history. Well-nourished well-developed HEENT: Moist mucous membranes, normal sclera with reactive pupils, Respiratory: Lungs are clear to auscultation, no wheezing no rales no rhonchi. Full and symmetrical air movement Cardiac: Regular rate and rhythm no murmurs no bruits Abdomen: Soft, tender in the left upper quadrants left flank into the left lower quadrant. No rebound or guarding Skin: Warm and dry, no rashes Neurologic: Grossly neurologically intact with no obvious asymmetries or abnormalities Extremities: No trauma, well perfused Psych: Cooperative, appropriate insight and affect Course Orders Ordered: ED Orders 06/05/24 11:48 Complete Blood Count AUTO DIFF Stat Comprehensive Metabolic Panel Stat Lipase Stat 06/05/24 12:26 CT abdomen pelvis w con Stat Hydromorphone HCl (Hydromorphone 0.5 Mg Inj) 0.5 mg IV Q15MIN PRN PRN Reason: Pain, Ondansetron HCl (Ondansetron 4 Mg/2 Ml Inj) 4 mg IV NOW PRN PRN Reason: Nausea And Vomiting Ondansetron HCl (Ondansetron 4 Mg Odt) 4 mg PO NOW PRN PRN Reason: Nausea And Vomiting Discontinued Medications Sodium Chloride (Normal Saline 0.9%) 1,000 mls @ 1,000 mls/hr IV BOLUS ONE Stop: 06/05/24 13:25 Last Infusion: 06/05/24 13:40 Dose: Infused Documented By: Admin: 06/05/24 12:41 Dose: 1,000 mls/hr Documented By: NICK Ondansetron HCl (Ondansetron 4 Mg/2 Ml Inj) 4 mg IV NOW ONE Stop: 06/05/24 12:27 Last Admin: 06/05/24 12:41 Dose: 4 mg Documented By: NICK Vital Signs Vital signs: Vital Signs - 8 hr 06/05/24 11:38 Temperature 97.6 F Pulse Rate 77 Respiratory Rate 18 Blood Pressure 140/87 Pulse Oximetry 99 Oxygen Delivery Method Room Air Medical Decision Making Lab Data 06/05/24 11:48 06/05/24 11:48 Labs: Lab Results 06/05/24 Range/Units 11:48 WBC 8.5 (4.5-11.0) X10^3/uL RBC 5.36 (4.5-5.9) X10^6/uL Hgb 15.6 (13.5-17.5) g/dL Hct 44.7 (41-53) % MCV 83.3 (80-100) fL MCH 29.1 (26-34) PG MCHC 35.0 (30-36) % RDW 14.1 (11.6-14.8) % Plt Count 230 (150-400) X10^3/uL Neut % (Auto) 71.1 (50-75) % Lymph % (Auto) 18.7 L (25-40) % Roberts % (Auto) 7.7 (3-14) % Eos % (Auto) 1.6 L (2-4) % Baso % (Auto) 0.9 (0-2) % Neut # (Auto) 6100 (8886-0306) /uL Lymph # (Auto) 1600 (8516-7850) /uL Roberts # (Auto) 700 (0-900) /uL Eos # (Auto) 100 (0-450) /uL Baso # (Auto) 100 (0-100) /uL Sodium 141 (137-145) mmol/L Potassium 4.0 (3.4-5.1) mmol/L Chloride 108 H (98-107) mmol/L Carbon Dioxide 26 (22-32) mmol/L BUN 15 (9-20) mg/dL Creatinine 1.01 (0.66-1.25) mg/dL Estimated GFR > 60 (>60) mL/min BUN/Creatinine Ratio 14.9 (6-22) Glucose 97 (70-100) mg/dL Calcium 9.0 (8.4-10.2) mg/dL Total Bilirubin 0.7 (0.2-1.3) mg/dL AST 53 (17-59) IU/L ALT 68 H (<50) IU/L Alkaline Phosphatase 103 (38-126) U/L Total Protein 7.6 (6.3-8.2) g/dL Albumin 4.6 (3.5-5.0) g/dL Globulin 3.0 (1.7-4.1) g/dL Albumin/Globulin Ratio 1.5 (1.0-2.8) Lipase 109 (23-300) U/L Urine Dip Bedside Urine Glucose Negative Bedside Urine Bilirubin - Negative Bedside Urine Ketone - Negative Urine Specific [place] 1.020 Bedside Urine Occult Blood - Negative Bedside Urine pH 6.0 Bedside Urine Protein - Negative Bedside Urine Urobilinogen - Negative Bedside Urine Nitrite - Negative Bedside Urine Leukocytes - Negative Esterase Point of care testing: Urine Dip Bedside Urine Glucose Negative Bedside Urine Bilirubin - Negative Bedside Urine Ketone - Negative Urine Specific [place] 1.020 Bedside Urine Occult Blood - Negative Bedside Urine pH 6.0 Bedside Urine Protein - Negative Bedside Urine Urobilinogen - Negative Bedside Urine Nitrite - Negative Bedside Urine Leukocytes - Negative Esterase Imaging Data CT scan - abdomen/pelvis: Radiologist's Impression: PROCEDURE: CT ABDOMEN PELVIS W CON INDICATIONS: Left side abdominal pain TECHNIQUE: After the administration of intravenous contrast, axial sections acquired from the lung bases to the pubic symphysis. Coronal and sagittal reformats were performed. For radiation dose reduction, the following was used: automated exposure control, adjustment of mA and/or kV according to patient size. COMPARISON: [facility], CT, CT ABDOMEN PELVIS WITH CONTRAST, 01/08/2024, 3:58. FINDINGS: Image quality: Diagnostic. Lower Chest: No significant findings. ABDOMEN: Liver: No solid mass. Gallbladder: No radiopaque gallstones or wall thickening. Biliary ducts: No biliary dilation. Pancreas: No ductal dilation. Spleen: Size is within normal limits. Adrenal Glands: No adrenal nodules. Kidneys and Ureters: No hydronephrosis. No solid mass. No complex renal cystic lesion which requires follow up. Stomach and Bowel: There is no bowel obstruction. Appendix is visualized and is within normal limits. Mild fecal stasis in the colon is seen. No abnormal bowel wall thickening or mesenteric fat stranding. Abscess collection. Peritoneum: No abnormal intraperitoneal fluid. No free air. Ventral Wall: No significant ventral hernia. Abdominal Nodes: No retroperitoneal or mesenteric adenopathy by size criteria. Vessels: Aorta and inferior vena cava are normal in size. PELVIS: Pelvic Organs: Unremarkable. Bladder: No bladder wall thickening, accounting for underdistention. Pelvic Nodes: No enlarged lymph nodes. Miscellaneous: No inguinal hernias are seen. Bones: No aggressive osseous abnormality. IMPRESSION: 1. No acute inflammatory process is seen in abdomen or pelvis. [id number] constipation. Normal appendix. No free fluid or free air. 2. No renal stones or hydronephrosis. Dictated by: Simón Gil M.D. on 06/05/2024 at 13:12 MDM Narrative Medical decision making narrative: CC: Continued left-sided abdominal pain Complicating co-morbidities: Ongoing issue, mid workup, please see HPI for medical record review Data collected from: patient, available records provided by the patient from the [facility] Medical records reviewed: Recent [facility] medical records Differential considered: Lymphoma, other neoplastic process, splenic infarct, constipation, gastroenteritis Exam documented above, pertinent findings include: Moderate left-sided abdominal pain with some guarding, no rebound remainder of exam is benign Lab Test results independently reviewed as above. Pertinent findings: CBC is unremarkable Chemistries are reassuring. ALT is slightly elevated at 68 Lipase is unremarkable Imaging studies independently reviewed: CT scan of the abdomen does not show significant abnormalities and suggest spleen is within normal limits currently. Moderate amount of stool is appreciated which may be contributing to his symptoms Treatments: Zofran, fluids, Dilaudid Re-evaluations: After the fluid nausea and pain medication patient is feeling much better. Re exam does not suggest an acute surgical abdomen Discussion: 38-year-old gentleman with a history of ongoing left-sided abdominal pain. His splenomegaly on CT scan today appears back to his baseline. There are no pathologic lymph nodes obvious obstruction masses tumors or other significant surgical pathology. Moderate amount of stool he states he had a normal bowel movement yesterday. We discussed CT scan findings as well as the reassuring blood work. He does have MiraLax available at home. Recommended he have enough of this this afternoon that so that he begins to have a bowel movement. If pain is improved than clearly related to constipation pain is not improving then we need to continue our outpatient evaluation. He does have an upcoming appointment with Gastroenterology in the near future. At this point he is safe for discharge and there was no indication for additional imaging, blood work or hospitalization. Questions are answered. Discharge Plan Departure Patient Disposition: Home Clinical Impression: Abdominal pain Qualifiers: Abdominal location: unspecified location Qualified Code(s): R10.9 - Unspecified abdominal pain Constipation Qualifiers: Constipation type: unspecified constipation type Qualified Code(s): K59.00 - Constipation, unspecified Instructions: DI for Constipation Activity Restrictions/Additional Instructions: Thank you for coming in today Fortunately, your blood work is reassuring. Your CT scan today shows that your spleen seems to be back to normal size. There is no pathologic lymph nodes to suggest lymphoma or other cancer type diagnosis. There were no masses or tumors that I can see in your abdomen There is a moderate amount of stool throughout your colon particularly on the left side. I am going to suggest that you go home and have couple of doses of MiraLax, enough so that you begin having bowel movement. If that resolves your pain thin that was today's issue. If it does not, then you clearly need to continue the outpatient workup to figure out why you are having this recurrent left-sided abdominal pain. Please make sure you do keep your appointment with the specialty person upcoming Prescriptions: No Action hydrocodone-acetaminophen 5-325 mg tablet 1 tab PO Q6H PRN (Reason: pain) Qty: 10 0RF Referrals: Iron Costa [Primary Care Provider] - Stand Alone Forms: Patient Portal/API
[2024-06-05 12:11] LABS: Alanine Aminotransferase 68 IU/L (<50); Albumin 4.6 g/dL (3.5-5.0); Albumin Globulin Ratio 1.5 (1.0-2.8); Alkaline Phosphatase 103 U/L (38-126); Aspartate Aminotransferase 53 IU/L (17-59); BUN Creatinine Ratio 14.9 (6-22); Bilirubin Total 0.7 mg/dL (0.2-1.3); Blood Urea Nitrogen 15 mg/dL (9-20); Carbon Dioxide 26 mmol/L (22-32); Chloride 108 mmol/L (98-107); Estimated Glomerular Filt Rate > 60 mL/min (>60); Glucose 97 mg/dL (70-100); HEMOLYSIS < 15 (0-50); Lipase 109 U/L (23-300); Sodium 141 mmol/L (137-145); Total Protein 7.6 g/dL (6.3-8.2)
--- NOTE | 2024-06-05 12:26 | DI.CT.S_ITS ---
PROCEDURE: CT ABDOMEN PELVIS W CON INDICATIONS: Left side abdominal pain TECHNIQUE: After the administration of intravenous contrast, axial sections acquired from the lung bases to the pubic symphysis. Coronal and sagittal reformats were performed. For radiation dose reduction, the following was used: automated exposure control, adjustment of mA and/or kV according to patient size. COMPARISON: [facility], CT, CT ABDOMEN PELVIS WITH CONTRAST, 01/08/2024, 3:58. FINDINGS: Image quality: Diagnostic. Lower Chest: No significant findings. ABDOMEN: Liver: No solid mass. Gallbladder: No radiopaque gallstones or wall thickening. Biliary ducts: No biliary dilation. Pancreas: No ductal dilation. Spleen: Size is within normal limits. Adrenal Glands: No adrenal nodules. Kidneys and Ureters: No hydronephrosis. No solid mass. No complex renal cystic lesion which requires follow up. Stomach and Bowel: There is no bowel obstruction. Appendix is visualized and is within normal limits. Mild fecal stasis in the colon is seen. No abnormal bowel wall thickening or mesenteric fat stranding. Abscess collection. Peritoneum: No abnormal intraperitoneal fluid. No free air. Ventral Wall: No significant ventral hernia. Abdominal Nodes: No retroperitoneal or mesenteric adenopathy by size criteria. Vessels: Aorta and inferior vena cava are normal in size. PELVIS: Pelvic Organs: Unremarkable. Bladder: No bladder wall thickening, accounting for underdistention. Pelvic Nodes: No enlarged lymph nodes. Miscellaneous: No inguinal hernias are seen. Bones: No aggressive osseous abnormality. IMPRESSION: 1. No acute inflammatory process is seen in abdomen or pelvis. [id number] constipation. Normal appendix. No free fluid or free air. 2. No renal stones or hydronephrosis. Dictated by: Simón Gil M.D. on 06/05/2024 at 13:12 Approved by: Simón Gil M.D. on 06/05/2024 at 13:14
[2024-06-05] MEDS: ONDANSETRON 4 MG/2 ML INJ IV (12:41)
[2024-06-05] MEDS: SODIUM CHLORIDE 0.9% 1,000 ML 1000 ML IV (12:41)
[2024-06-05 14:29] VITALS: BP 131/81; PULSE 62; O2SAT 99
== END 2024-06-05 14:32 | disposition home or self-care (01) ==
PROVIDERS: Emergency Provider Emergency Medicine; Family Provider Podiatrist
DX: R10.9 Unspecified abdominal pain (principal); K59.00 Constipation, unspecified
CPT/HCPCS: 36415; 74177; 80053; 81003; 83690; 85025; 96361; 96374; 99284; J2405; Q9967

== ENCOUNTER 2025-06-18 20:23 | Emergency (ER) | payer OTHER, SELFPAY ==
[2025-06-18] VITALS (7 sets, daily range): BP systolic 121–137; BP diastolic 84–95; PULSE 81–104; RESP 14–18; TEMP 36.3; O2SAT 96–100; BMI 24.3
--- NOTE | 2025-06-18 20:25 | EKG_ITS ---
[facility] [address], [place] [address] Test Date: 2025-06-18 Pat Name: Florentino Snider Department: [facility] Room: Gender: Male [employer]: : [id number] Requested By: Order Number: [id number] Reading MD: Des Medrano MD Measurements Intervals [place] Rate: 122 P: 57 ID: 140 QRS: 16 QRSD: 74 T: 0 QT: 304 QTc: 433 Interpretive Statements Sinus tachycardia Electronically Signed On 06-19-2025 7:24:36 PDT by Des Medrano MD
--- NOTE | 2025-06-18 20:36 | DI.RAD.S_ITS ---
PROCEDURE: XR CHEST 1V INDICATIONS: chest pain TECHNIQUE: One view of the chest was acquired. COMPARISON: , CR, XR CHEST 1V, 05/09/2022, 18:45. FINDINGS: Surgical changes and devices: None. Lungs and pleura: Lungs are clear. No pleural effusions or pneumothorax. Mediastinum: Mediastinal contours appear normal. Heart size is normal. Bones and chest wall: No suspicious bony lesions. Overlying soft tissues appear unremarkable. IMPRESSION: No acute cardiopulmonary abnormality is seen. Dictated by: Souleymane Marshall M.D. on 06/18/2025 at 21:31 Approved by: Souleymane Marshall M.D. on 06/18/2025 at 21:32
--- NOTE | 2025-06-18 20:41 | ED_ITS ---
HPI - Chest Pain General Chief Complaint: Chest Pain Stated Complaint: chest pain, elevated hr and bp all day Time Seen by Provider: 06/18/25 20:36 Source: patient Mode of arrival: Ambulatory Limitations: no limitations History of Present Illness HPI narrative: 39-year-old male with history of depression, some anxiety, playing softball earlier today, no injury recalled, subsequently having left anterior sharp chest pain, some shortness of breath, worse chest pain with deep breathing, tingling to both hands. Denies pain swelling to legs. No history of blood clots to legs or lungs. Denies recent fevers or chills, no recent cough. No history of asthma reactive airways disease. MD complaint: chest pain Related Data Previous Rx's ?Medication ?Instructions ?Recorded hydrocodone 5 mg-acetaminophen 325 1 tab PO Q6H PRN pa in #10 tabs 12/29/23 mg tablet Allergies Allergy/AdvReac Type Severity Reaction Status Date / Time No Known Drug Allergies Allergy Verified 06/18/25 20:30 Patient History Social History Smoking Status: Never smoker Smoking Status: Never smoker alcohol intake frequency: holidays/special occasions only Exam Narrative Exam Narrative: GENERAL: Well-developed patient, in mild distress. HEAD: Atraumatic. Normocephalic. EYES: Pupils equal round and reactive. Extraocular motions intact. No scleral icterus. No injection or drainage. ENT: Nose without bleeding, purulent drainage. Throat without erythema, tonsillar hypertrophy or exudate. Airway patent. NECK: Trachea midline. Non tender CARDIOVASCULAR: Regular rate and rhythm without murmurs, gallops, or rubs. RESPIRATORY: Clear to auscultation. Breath sounds equal bilaterally. No wheezes, rales, or rhonchi. Left anterior lower chest wall tenderness, no bruising or skin redness, no crepitance, moves air well, no respiratory distress. Speaks in full sentences. GASTROINTESTINAL: Abdomen soft, non-tender, nondistended. EXTREMITIES: No edema or joint tenderness. BACK: Nontender without deformity or crepitance. No flank tenderness. NEURO: AOx3. Motor functions grossly nonfocal. SKIN: No rash or erythema of visible areas Initial Vital Signs Initial Vital Signs: Vital Signs Temperature 97.4 F L 06/18/25 20:30 Pulse Rate 103 H 08/11/25 20:30 Respiratory Rate 16 06/18/25 20:30 Blood Pressure 137/94 H 06/18/25 20:30 Pulse Oximetry 100 06/18/25 20:30 Oxygen Delivery Method Room Air 06/18/25 20:30 Course Orders Ordered: ED Orders 06/18/25 20:25 EKG-12 Lead Stat 06/18/25 20:36 XR chest 1V Stat EKG-12 Lead Stat 06/18/25 20:51 Complete Blood Count AUTO DIFF Stat Comprehensive Metabolic Panel Stat D Dimer Stat Lipase Stat Troponin & CK Cardiac Panel Stat 06/18/25 22:58 Troponin I Stat Discontinued Medications Aspirin (Aspirin 81 Mg Chew Tab) 324 mg PO NOW ONE Stop: 06/18/25 20:52 Last Admin: 06/18/25 20:58 Dose: 324 mg Documented By: Sodium Chloride (Normal Saline 0.9%) 1,000 mls @ 1,000 mls/hr IV BOLUS ONE Stop: 06/18/25 22:47 Last Infusion: 06/18/25 23:00 Dose: Infused Documented By: Admin: 06/18/25 21:54 Dose: 1,000 mls/hr Documented By: EDE Ketorolac Tromethamine (Ketorolac 30 Mg/Ml Vial) 15 mg IV NOW ONE Stop: 06/18/25 20:52 Last Admin: 06/18/25 20:57 Dose: 15 mg Documented By: Vital Signs Vital signs: Vital Signs - 8 hr 06/18/25 20:30 06/18/25 21:03 06/18/25 21:30 Temperature 97.4 F L Pulse Rate 103 H 104 H Respiratory Rate 16 18 Blood Pressure 137/94 H 132/88 Pulse Oximetry 100 99 Oxygen Delivery Method Room Air 06/18/25 21:30 06/18/25 22:00 06/18/25 22:00 Temperature Pulse Rate 98 H 94 H Respiratory Rate 17 17 Blood Pressure 126/86 Pulse Oximetry 97 96 Oxygen Delivery Method Room Air 06/18/25 22:30 06/18/25 22:30 06/18/25 23:00 Temperature Pulse Rate 89 88 Respiratory Rate 18 18 Blood Pressure 132/95 H Pulse Oximetry 97 97 Oxygen Delivery Method Room Air 06/18/25 23:30 06/18/25 23:30 06/19/25 00:00 Temperature Pulse Rate 81 Respiratory Rate 14 Blood Pressure 121/84 121/83 Pulse Oximetry 98 Oxygen Delivery Method 06/19/25 00:00 06/19/25 00:30 06/19/25 00:30 Temperature Pulse Rate 80 79 Respiratory Rate 16 15 Blood Pressure 117/86 Pulse Oximetry 98 98 Oxygen Delivery Method Room Air Room Air MDM - Chest Pain Lab Data Attestation: I reviewed the patient's lab results. Lab results narrative: White blood cell count 8900, hemoglobin 17.1, platelets adequate. Glucose 106. Renal function normal. Serum CO2 20, electrolytes normal. Liver functions and lipase normal. Troponin negative. CPK 335. 06/18/25 20:51 06/18/25 20:51 Labs: Lab Results 06/18/25 06/18/25 Range/Units 20:51 22:58 WBC 8.9 (4.5-11.0) X10^3/uL RBC 6.02 H (4.5-5.9) X10^6/uL Hgb 17.1 (13.5-17.5) g/dL Hct 48.2 (41-53) % MCV 80.0 (80-100) fL MCH 28.3 (26-34) PG MCHC 35.4 (30-36) % RDW 13.9 (11.6-14.8) % Plt Count 249 (150-400) X10^3/uL Neut % (Auto) 62.4 (50-75) % Lymph % (Auto) 27.3 (25-40) % [place] % (Auto) 8.3 (3-14) % Eos % (Auto) 1.4 L (2-4) % Baso % (Auto) 0.6 (0-2) % Neut # (Auto) 5600 (2935-4457) /uL Lymph # (Auto) 2400 (4525-6442) /uL [place] # (Auto) 700 (0-900) /uL Eos # (Auto) 100 (0-450) /uL Baso # (Auto) 0 (0-100) /uL RBC Morphology Normal morphology D-Dimer < 215 (<500) ng/ml Sodium 139 (137-145) mmol/L Potassium 3.6 (3.4-5.1) mmol/L Chloride 104 (98-107) mmol/L Carbon Dioxide 20 L (22-32) mmol/L BUN 10 (9-20) mg/dL Creatinine 1.15 (0.66-1.25) mg/dL Estimated GFR > 60 (>60) mL/min BUN/Creatinine Ratio 8.7 (6-22) Glucose 106 H (70-99) mg/dL Calcium 9.8 (8.4-10.2) mg/dL Total Bilirubin 1.0 (0.2-1.3) mg/dL AST 42 (17-59) IU/L ALT 49 (<50) IU/L Alkaline Phosphatase 132 H (38-126) U/L Total Creatine Kinase 335 H (55-170) U/L Troponin I < 0.012 < 0.012 (0.01-0.034) ng/mL Total Protein 8.7 H (6.3-8.2) g/dL Albumin 5.0 (3.5-5.0) g/dL Globulin 3.7 (1.7-4.1) g/dL Albumin/Globulin Ratio 1.4 (1.0-2.8) Lipase 121 (23-300) U/L Imaging Data Chest x-ray: Radiologist's Impression: [address] [address] XRay Report Signed Patient: Florentino Snider MR#: [id number] : 1985 Acct:[id number] Age/Sex: 39 / M Date of Service: 06/18/25 Loc: ED Accession Number: [id number] Procedure: XR chest 1V Ordering Provider: Manuel Payan MD PROCEDURE: XR CHEST 1V INDICATIONS: chest pain TECHNIQUE: One view of the chest was acquired. COMPARISON: [facility], , XR CHEST 1V, 05/09/2022, 18:45. FINDINGS: Surgical changes and devices: None. Lungs and pleura: Lungs are clear. No pleural effusions or pneumothorax. Mediastinum: Mediastinal contours appear normal. Heart size is normal. Bones and chest wall: No suspicious bony lesions. Overlying soft tissues appear unremarkable. IMPRESSION: No acute cardiopulmonary abnormality is seen. Dictated by: Souleymane Marshall M.D. on 06/18/2025 at 21:31 Approved by: Souleymane Marshall M.D. on 06/18/2025 at 21:32 ECG Data Attestation: I personally reviewed and interpreted this ECG as follows: Interpretation: 2027, sinus tachycardia with rate of 122, no obvious ST segment elevation or depression changes. T-wave inversion lead 3, upright other contiguous inferior leads. IN 140, QRS 74, QTC 433. [facility] [place] Narrative Medical decision making narrative: 39-year-old male with left anterior chest discomfort, pleuritic, some tenderness on exam, suspect musculoskeletal. However consider also PE, ACS, pneumonia, other. EKG was sinus tachycardia, no ischemic changes obvious. Chest x-ray no acute findings. See radiology report. Lab data: White blood cell count 8900, hemoglobin 17.1, platelets adequate. Glucose 106. Renal function normal. Serum CO2 20, electrolytes normal. Liver functions and lipase normal. Troponin negative/unmeasurable x2 sets. CPK 335. Patient received oral aspirin and IV Toradol, IV fluids. Sinus tachycardia resolved. Symptoms improved. No obvious emergency medical condition identified. Further workup as an outpatient for now. Likely chest wall etiology of left anterior chest discomfort, recent playing softball noted, possible sports related injury. Advised use of [id number] analgesics as needed. Follow up with PCP, return precautions discussed. Discharge Plan Departure Patient Disposition: Home Clinical Impression: Chest wall pain Instructions: DI for Atypical Chest Pain Activity Restrictions/Additional Instructions: Left anterior chest wall pain. Initial elevated heart rate, chest x-ray and EKG and blood work not suggestive of heart attack or other acute condition at this time. IV fluids and analgesics and aspirin and Toradol given. Symptoms improved, vital signs normalized. D-dimer not elevated, which would be elevated if you had abnormal large clots to the lungs for example. Further workup as an outpatient for now. Take [id number] ibuprofen as needed for chest wall discomfort. Recheck symptoms with your regular doctor in the next couple of days. Return to this/nearest emergency department for any change worsening symptoms or any concerns prior. Prescriptions: No Action hydrocodone-acetaminophen 5-325 mg tablet 1 tab PO Q6H PRN (Reason: pain) Qty: 10 0RF Referrals: Iron Costa [Primary Care Provider, Medical] Stand Alone Forms: Patient Portal/API
[2025-06-18] MEDS: KETOROLAC 30 MG/ML VIAL 15 MG IV (20:57)
[2025-06-18] MEDS: ASPIRIN 81 MG CHEW TAB 324 MG PO (20:58)
[2025-06-18 21:08] LABS: HEMOLYSIS < 15 (0-50)
[2025-06-18 21:12] LABS: Add Manual Diff / Slide Review NO; Hematocrit 48.2 % (41-53); Hemoglobin 17.1 g/dL (13.5-17.5); Lymphocytes Absolute Auto 2400 /uL (1100-4500); Mean Corpuscular HGB Conc 35.4 % (30-36); Mean Corpuscular Hemoglobin 28.3 PG (26-34); Mean Corpuscular Volume 80.0 fL (80-100); Platelet Count 249 X10^3/uL (150-400)
[2025-06-18 21:13] LABS: Alanine Aminotransferase 49 IU/L (<50); Albumin 5.0 g/dL (3.5-5.0); Albumin Globulin Ratio 1.4 (1.0-2.8); Alkaline Phosphatase 132 U/L (38-126); Blood Urea Nitrogen 10 mg/dL (9-20); Calcium 9.8 mg/dL (8.4-10.2); Carbon Dioxide 20 mmol/L (22-32); Chloride 104 mmol/L (98-107); Creatine Kinase 335 U/L (55-170); Estimated Glomerular Filt Rate > 60 mL/min (>60); Globulin 3.7 g/dL (1.7-4.1); Glucose 106 mg/dL (70-99); Lipase 121 U/L (23-300); Potassium 3.6 mmol/L (3.4-5.1); Sodium 139 mmol/L (137-145); Total Protein 8.7 g/dL (6.3-8.2)
[2025-06-18 21:26] LABS: Troponin I < 0.012 ng/mL (0.01-0.034)
[2025-06-18 21:38] LABS: RBC Morphology Normal Morphology
[2025-06-18] MEDS: SODIUM CHLORIDE 0.9% 1,000 ML 1000 ML IV (21:54)
[2025-06-18 23:40] LABS: Troponin I < 0.012 ng/mL (0.01-0.034)
[2025-06-19] VITALS: BP 121/83; PULSE 80; RESP 16; O2SAT 98
[2025-06-19 00:30] VITALS: BP 117/86; PULSE 79; RESP 15; O2SAT 98
== END 2025-06-19 00:42 | disposition home or self-care (01) ==
PROVIDERS: Emergency Provider Emergency Medicine; Family Provider Podiatrist
DX: R07.89 Other chest pain (principal); R06.02 Shortness of breath
CPT/HCPCS: 36415; 71045; 80053; 82550; 83690; 84484; 85025; 85379; 93005; 96361; 96374; 99284; J1885